=== PATIENT | male | born 1985 | race Hispanic/Latino ===

== ENCOUNTER → 2018-09-19 | Outpatient (CLI) | payer OTHER | LOC: M RAD 08:30 | DX: M84.361A Stress fracture, right tibia, initial encounter for fracture (principal); M79.661 Pain in right lower leg | CPT/HCPCS: 78315 ==

== ENCOUNTER 2020-10-07 08:06 | Day surgery (SDC) | payer OTHER ==
[~2020-10-07] VITALS: Ht 175.3 cm; Wt 96.2 kg
[~2020-10-07 08:06] MED LIST: CYCL-707; PANT40TA29; PANT40TA29 PO; SIME40TA; VALT1TAB PO
[2020-10-07] MEDS ORDERED: NS 1,000 ML IV ONE (09:00)
[2020-10-07] MEDS ORDERED: fentaNYL 100 MCG/2 ML INJECTION (J3010) As Ordered ONE (09:00)
[2020-10-07] MEDS ORDERED: LIDOCAINE 2% 100MG/5ML SDV (FOR ANES.) As Ordered ONE (09:00)
[2020-10-07] MEDS ORDERED: propofoL 200 MG/20 ML VIAL As Ordered ONE ×2 (09:00→10:10)
--- NOTE | 2020-10-07 10:01 | ROOR ---
Patient Name: Juan Manuel Bronson Procedure Date: 10/07/2020 9:40 AM Date of : 1985 Age: 35 Room: [facility] Gender: Male Note Status: Finalized Procedure: Upper Endoscopy + Biopsies Indications: Heartburn, Exclusion of Campos's esophagus Providers: Segun Win MD Referring MD: EBONY VILLEGAS MD Requesting Provider: Medicines: Monitored Anesthesia Care Complications: No immediate complications. Procedure: Pre-Anesthesia Assessment: - The heart rate, respiratory rate, oxygen saturations, blood pressure, adequacy of pulmonary ventilation, and response to care were monitored throughout the procedure. The Endoscope was introduced through the mouth, and advanced to the second part of duodenum. The upper GI endoscopy was accomplished without difficulty. The patient tolerated the procedure well. Findings: The Z-line was regular and was found 40 cm from the incisors. Multiple biopsies were obtained with cold forceps for evaluation to rule out Campos's Esophagus randomly at the gastroesophageal junction. No other significant abnormalities were identified in a careful examination of the stomach. The exam of the duodenum was otherwise normal. Impression: - Z-line regular, 40 cm from the incisors. - Multiple biopsies were obtained at the gastroesophageal junction. - The examination was otherwise normal. Recommendation: - Patient has a contact number available for emergencies. The signs and symptoms of potential delayed complications were discussed with the patient. Return to normal activities tomorrow. Written discharge instructions were provided to the patient. - High fiber diet. - Discharge patient to home. - Follow an antireflux regimen. - Continue present medications. - Await pathology results. - Telephone GI clinic for pathology results in 1 week. - Return to referring physician. - The findings and recommendations were discussed with the patient. Procedure Code(s): --- Professional --- 37830, Esophagogastroduodenoscopy, flexible, transoral; with biopsy, single or multiple Diagnosis Code(s): --- Professional --- R12, Heartburn CPT copyright 2019 [employer]. All rights reserved. The codes documented in this report are preliminary and upon long wall shear operator review may be revised to meet current compliance requirements. Segun Win MD Segun Win MD 10/07/2020 10:00:50 AM Electronically signed by Segun Win MD Number of Addenda: 0 Note Initiated On: 10/07/2020 9:40 AM Estimated Blood Loss: Estimated blood loss: none.
--- NOTE | 2020-10-07 10:19 | ROOR ---
Patient Name: Juan Manuel Bronson Procedure Date: 10/07/2020 9:41 AM Date of : 1985 Age: 35 Room: [facility] Gender: Male Note Status: Finalized Procedure: Total Colonoscopy to Cecum Indications: Change in bowel habits, Chronic idiopathic constipation Providers: Segun Win MD Referring MD: EBONY VILLEGAS MD Requesting Provider: Medicines: Monitored Anesthesia Care Complications: No immediate complications. Procedure: Pre-Anesthesia Assessment: - The heart rate, respiratory rate, oxygen saturations, blood pressure, adequacy of pulmonary ventilation, and response to care were monitored throughout the procedure. The Colonoscope was introduced through the anus and advanced to the cecum, identified by appendiceal orifice and ileocecal valve. The colonoscopy was performed without difficulty. The patient tolerated the procedure well. The quality of the bowel preparation was excellent. Findings: The perianal and digital rectal examinations were normal. Non-bleeding internal hemorrhoids were found during retroflexion. The hemorrhoids were small and Grade I (internal hemorrhoids that do not prolapse). No other significant abnormalities were identified in a careful examination of the remainder of the colon. The exam was otherwise without abnormality on direct and retroflexion views. Impression: - Non-bleeding internal hemorrhoids. - The examination was otherwise normal on direct and retroflexion views. - No specimens collected. - The exam was otherwise normal to the cecum. Recommendation: - Patient has a contact number available for emergencies. The signs and symptoms of potential delayed complications were discussed with the patient. Return to normal activities tomorrow. Written discharge instructions were provided to the patient. - High fiber diet. - Discharge patient to home. - Continue present medications. - Repeat colonoscopy at age 51 for screening purposes. - Return to referring physician. - The findings and recommendations were discussed with the patient. Procedure Code(s): --- Professional --- 09590, Colonoscopy, flexible; diagnostic, including collection of specimen(s) by brushing or washing, when performed (separate procedure) Diagnosis Code(s): --- Professional --- K64.0, First degree hemorrhoids R19.4, Change in bowel habit K59.04, Chronic idiopathic constipation CPT copyright 2019 [employer]. All rights reserved. The codes documented in this report are preliminary and upon crew dispatcher review may be revised to meet current compliance requirements. Segun Win MD Segun Win MD 10/07/2020 10:18:31 AM Electronically signed by Segun Win MD Number of Addenda: 0 Note Initiated On: 10/07/2020 9:41 AM Estimated Blood Loss: Estimated blood loss: none.
[2020-10-07 10:40] VITALS: BP 125/79
[2020-10-07] MEDS ORDERED: PHENYLephrine HCL 500 MCG/5 ML (100MCG/ML) SYRINGE (J2370) As Ordered ONE (17:55)
== END 2020-10-07 10:53 | disposition home or self-care (01) ==
LOC: M OPP 08:06
PROVIDERS: ATTEND Internal Medicine Gastroenterology
DX: K64.0 First degree hemorrhoids (principal); R19.4 Change in bowel habit; K31.89 Other diseases of stomach and duodenum; R12 Heartburn; K58.0 Irritable bowel syndrome with diarrhea; Z79.899 Other long term (current) drug therapy
CPT/HCPCS: 43239; 45378; 88305; 88342; J3010